=== PATIENT | female | born 1995 | race Caucasian/White ===

== ENCOUNTER → 2018-11-04 | Outpatient (CLI) | payer SELFPAY ==
--- NOTE | 2018-11-04 10:03 | US_ITS ---
STUDY: FIRST TRIMESTER OBSTETRICAL ULTRASOUND REASON FOR EXAM: Female, 23 years old. Bleeding. LMP: August 29, 2018. TECHNIQUE: Transabdominal TECHNICAL QUALITY: Adequate. PRIOR ULTRASOUND: None. FINDINGS: There is visualization of a single gestational sac in a normal intrauterine position. The mean sac diameter (MSD) measures 4.0 cm, indicating an estimated gestational age (EGA) of 9 weeks, 4 days. The gestational sac shape is within normal limits. There is a visualized yolk sac. The yolk sac measures 4 mm. The placenta is non-visualized. There is visualization of a live embryo. The crown-rump length (CRL) measures 3 cm, indicating an estimated gestational age (EGA) of 9 weeks, 6 days. There is demonstrated cardiac activity with a heart rate of 172 bpm. The estimated gestation age (EGA) by LMP is 9 weeks, 4 days. The estimated date of delivery (KRYS) by LMP is June 05, 2019. The estimated gestation age (EGA) by US is 9 weeks, 5 days. The estimated date of delivery (KRYS) by US is June 04, 2019. The uterus measures 11.3 cm x 10.9 cm x 8.4 cm. There is no demonstrated uterine fibroid. The cervix is closed. The right ovary measures 3.3 cm x 1.7 cm x 1.9 cm. There is no right ovarian cyst. There is no visualized right adnexal mass or complex lesion. The left ovary is not visualized. There is no fluid in the cul de sac. US/Init OB < 14Wks US IMPRESSION: Single live intrauterine gestation with a mean gestational age of 9 weeks and 5 days. Electronically Signed: Fer Schuster, at 15:19 EDT , Service support ,
== END | disposition home or self-care (01) ==
DX: O20.0 Threatened abortion (principal)
CPT/HCPCS: 76801

== ENCOUNTER 2019-12-30 21:14 | Emergency (ER) | payer OTHER, SELFPAY ==
[2019-12-30 21:15] VITALS: BP 119/84; PULSE 95; RESP 16; TEMP 37.4; O2SAT 96; BMI 21.2
--- NOTE | 2019-12-30 21:43 | ED.DCSUM_ITS ---
History of Present Illness Chief Complaint: Abscess Informant: Patient Onset: Days - 2-3 Context: Gradual Onset Timing: Continuous Quality: ache Location: left lower 2nd molar Current Severity: Severe Maximum Severity: Severe Worsened by: eating, swallowing Relieved by: - - nothing Associated Symptoms: Jaw Swelling Narrative: Patient was developing dental pain and infection, saw dentist earlier today and was prescribed clindamycin which she already started. No other medications given. She states the swelling has become worse since then, and now it hurts down into her left lateral neck especially when she swallows. No dyspnea. No fevers. She is healthy. Past Medical History - Allergies and Home Meds Allergies/Adverse Reactions: Allergies Penicillins [PCN] Adverse Reaction (Verified 12/30/19 21:17) [place] Primary Care Physician: Abhishek Flores,Out of [Primary Care Provider] - Past Medical History: None Lives: Spouse/ Significant Other Smoking Status: Never smoker Review of Systems General: Denies: Chills, Fever, Sweats ENT: Reports: - - Dental pain/abscess. See HPI. Denies: Rhinorrhea, Sore throat Cardiovascular: Denies: Chest pain, Palpitations Respiratory: Denies: Dyspnea, Cough Gastrointestinal: Denies: Nausea, Vomiting Musculoskeletal: Reports: Neck pain. Denies: Back pain, Swelling Physical Exam Vital Signs/Narrative: Vital Signs Temp Pulse Resp BP Pulse Ox 12/30/19 21:15 99.4 F H 95 16 119/84 H 96 Inital Vital Signs reviewed: Yes General: Well nourished, Well developed, - - Well-appearing, no acute distress. No hoarseness or stridor. Head: Normocephalic, Atraumatic ENT: Moist mucous membranes, No rhinorrhea Mouth/Throat: Normal inspection lips/gums, Normal posterior oropharynx, No sublingual edema, Dental abscess - Externally, near the base of tooth #'s 18-19, with nearby dental tenderness without subluxation, purulent discharge, or bleeding, Trismus - Mild Neck: Supple, Anterior submandibular lymphadenopathy. Negative for: Soft tissue swelling, Submandibular soft tissue swelling, Submental soft tissue swelling, Parotid tenderness Respiratory: No distress Skin: Normal color, No rash, No Trauma Neurological: Alert, Oriented x3, Cranial nerves II-XII grossly intact, Normal Strength, Normal Sensation, Normal Gait Psychological: Normal affect, Normal Mood Diagnostic/Tx/Re-eval - Medical Decision Making Dental Procedures: - - Abscess aspiration-after topical anesthesia with Cetacaine spray, a 21-gauge needle was used to aspirate a small amount of bloody purulent material. Tolerated well, no complications. Patient was amenable to abscess aspiration. She was also given Decadron 8 mg, and a [place] as well as a prescription for [place]. Advised to follow-up with dentist as scheduled for root canal in the future according to her. ED Disposition - Plan for ED Patient: Disposition: Home or Assisted Living Diagnosis: Dental abscess Instructions: ED ABSCESS DENTAL Prescriptions: Hydrocodone Bitart/Apap 5-325 [[place] 5MG-325MG] 1 tab PO Q4H PRN PRN 2 Days #10 tab PRN Reason: Pain Prescription Printed Referrals: Dentist,Your [STAFF PHYSICIAN] - Keep Tali appointment (or sooner if worsening after 1-2 days) Additional Instructions: Continue your antibiotic as prescribed.
[2019-12-30] MEDS: dexAMETHasone 4 MG Tablet 8 MG PO (21:56)
[2019-12-30] MEDS: HYDROcodone Bitartrate/Apap 5/325 Tablet PO (21:56)
[2019-12-30] MEDS: Tetracaine/Benzocaine/Butamben 1 APPLIC TOPICAL (21:56)
[2019-12-30 22:23] VITALS: RESP 16
== END 2019-12-30 22:28 | disposition home or self-care (01) ==
LOC: ED 22:06
PROVIDERS: Emergency Provider Emergency Medicine; PCP Nurse Practitioner Family
DX: K04.7 Periapical abscess without sinus (principal)
CPT/HCPCS: 41800; 99284